=== PATIENT | male | born 1980 | race Caucasian/White ===

== ENCOUNTER 2020-02-05 18:19 | Emergency (ER) | payer OTHER ==
[~2020-02-05] VITALS: Ht 167.6 cm; Wt 74.8 kg
--- NOTE | 2020-02-05 19:04 | NUR ---
Dr Pablo at bedside for eval.
--- NOTE | 2020-02-05 20:03 | NUR ---
PT WAS EVALUATED BY DR LAI. GAIT TRAINING WITH CRUTCHES WAS DONE. GAIT IS TABLE. PT WAS D/C'd TO HOME. D/C INSTRUCTIONS GIVEN TO THE PT.
[2020-02-05 20:07] VITALS: BP 143/78
== END 2020-02-05 20:08 | disposition home or self-care (01) ==
LOC: ER 18:21
DX: M25.561 Pain in right knee (principal); Z60.2 Problems related to living alone; V49.9XXA Car occupant (driver) (passenger) injured in unspecified traffic accident, initial encounter; Y93.89 Activity, other specified; Y92.89 Other specified places as the place of occurrence of the external cause; Y99.8 Other external cause status
CPT/HCPCS: 72100; A4663